=== PATIENT | female | born 1945 | race Caucasian/White ===

== ENCOUNTER 2025-06-01 16:42 | Emergency (ER) | payer MEDICARE, SELFPAY ==
--- NOTE | ~2025-06-01 | XR_ITS ---
EXAMINATION: XR hand RT min 3V DATE: 06/01/2025 17:13 INDICATION: Right hand pain at the fifth metacarpal and digit post fall TECHNIQUE: Posteroanterior, oblique and lateral views of the right hand were obtained. COMPARISON: None. FINDINGS: 1 mm displacement of a fracture at the ulnar side of the base of the fifth proximal phalanx. The frac ture plane appears to extend to the ulnar margin of the proximal articular surface, potentially intra -articular but without significant fracture gap or incongruity. No other fractures identified. Polyar ticular osteoarthritis, moderate severity at the triscaphe, first and second metacarpophalangeal, fir st metacarpophalangeal and at multiple distal interphalangeal joints with mild osteoarthritis at the wrist, midcarpal and many of the remaining carpal metacarpal, metacarpophalangeal and interphalangeal joints. Diffuse osteopenia. Subtle chondrocalcinosis in the region of the lunotriquetral ligament. S oft tissue swelling about the base of the fifth digit. IMPRESSION: 1. Minimally displaced likely intra-articular fracture at the ulnar base of the right fifth proximal phalanx. 2. 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 Reviewed, dictated and finalized at location A. IMPRESSION: 1. Minimally displaced likely intra-articular fracture at the ulnar base of the right fifth proximal phalanx. 2. Diffuse osteopenia and moderate polyarticular osteoarthritis at the right aguirre nd.
--- NOTE | ~2025-06-01 | XR_ITS ---
EXAMINATION: XR chest 2V DATE: 06/01/2025 17:48 INDICATION: Lightheadedness TECHNIQUE: PA and lateral views of the chest were obtained. COMPARISON: None FINDINGS: Mild hyperexpansion of the lungs. Moderate biapical pleural-parenchymal scarring. No other airspace o pacities, pulmonary edema, pleural effusion or pneumothorax. Mild cardiomegaly. Left pectoral implant able registered nurse cardiac telemetry. Mild thoracic kyphosis with mild to moderate spondylosis. IMPRESSION: 1. . Megaly. 2. Mild hyperexpansion lungs with moderate biapical pleural-parenchymal scarring. Reviewed, dictated and finalized at location A. IMPRESSION: 1. . Megaly. 2. Mild hyperexpansion lungs with moderate biapical pleural-parenchymal scarjosselin monreal
--- NOTE | 2025-06-01 16:53 | ED_ITS ---
HPI - Extremity Injury (Upper) General Chief Complaint: Extremity Injury, Upper Stated Complaint: R ARM INJURY Time Seen by Provider: 06/01/25 17:22 Source: patient and RN notes reviewed Mode of arrival: ambulatory Limitations: no limitations History of Present Illness HPI narrative: 80-year-old female presents with concern for right hand injury, right arm injury. She reports she has been feeling lightheaded, yesterday she fell out of a car, injuring her right arm. She also reports a small skin tear on her left arm. She has AFib and sees a sushi chef in her home state of [place]. She has a follow-up in July. She is a poor historian. MD complaint: injury to: right, arm and hand Related Data Home Medications ?Medication ?Instructions ?Recorded ?Confirmed ?Last Taken ?Type apixaban 2.5 mg tablet (Eliquis) mg 06/01/25 Unknown History metoprolol succinate 25 mg mg PO 06/01/25 Unknown History tablet,extended release 24 hr Allergies Allergy/AdvReac Type Severity Reaction Status Date / Time No Known Allergies Allergy Verified 06/01/25 17:05 Review of Systems Review of Systems: CONSTITUTIONAL: Denies malaise, chills, sweats, or fever. CARDIOVASCULAR: Denies chest pain, palpitations, or edema. RESPIRATORY: Denies cough or dyspnea. SKIN: Reports skin tear to the right arm and left elbow MUSCULOSKELETAL: Reports right hand pain NEUROLOGIC: Denies numbness, weakness All systems reviewed & are unremarkable except as noted in HPI and below PMFSH Comments At time of signature, agree with nursing past medical, surgical, social and family history. There is no relevant family history pertinent to the presenting complaint Exam Narrative: GENERAL: Nontoxic-appearing and in no acute distress. HEAD: Normocephalic, atraumatic. EYES: PERRLA NECK: Supple. CHEST: Speaks in full sentences. No respiratory distress. HEART: Regular rate and rhythm. Normal and equal peripheral pulses. EXTREMITIES: Right arm, and wrist, hand, digits have grossly normal strength and sensation, normal range of motion. Moderate hand edema beneath the 5th digit, with mild ecchymosis. Normal sensation with sensitivity to light touch and pain. Tenderness noted to the base of the 5th digit. No skin tenting, no devitalized tissue or atrophy, no trophic changes, no obvious deformity, alignment normal, nearby joints and structures intact. Distal pulses palpable and equal bilaterally, skin warm, dry, pink. Capillary refill less than 3 seconds. SKIN: Clammy. 2 cm skin tear noted to the right forearm, 0.5 cm skin tear noted to the left elbow NEURO: Alert and oriented x3. PSYCH: Normal mood and affect Course Course Emergency Course: EKG and chest x-ray done because patient was feeling lightheaded. EKG shows AFib, patient has chronic AFib. I offered patient transferred to emergency room for further evaluation of her symptoms that may have caused her fall. She declines. I urged her to go to the emergency room if her symptoms worsen. Anticipatory guidance given. Patient agrees to follow-up as directed and is aware of reasons to seek care at the emergency department. Portions of this record may have been created with voice recognition software Level of Care: Express Care Visit Vital Signs Vital signs: Vital Signs Temperature 98.4 F 06/01/25 17:01 Pulse Rate 96 06/01/25 17:01 Respiratory Rate 16 06/01/25 17:01 Blood Pressure 111/61 06/01/25 17:01 Pulse Oximetry 93 06/01/25 17:01 Temperature 98.4 F 06/01/25 17:01 Pulse Rate 96 06/01/25 17:01 Respiratory Rate 16 06/01/25 17:01 Blood Pressure 111/61 06/01/25 17:01 Pulse Oximetry 93 06/01/25 17:01 Reviewed. MDM - Extremity Injury (Upper) MDM Narrative Medical decision making narrative: Patients injury and pain is consistent with musculoskeletal etiology. No signs of neurological or vascular compromise on exam. Compartments and tissues are soft without signs of compartment syndrome. Pain is felt appropriate for further evaluation on an outpatient basis. Imaging Data My impression: Images reviewed, interpreted by radiologist, agree, see report. Radiologist's impression: EXAMINATION: XR hand RT min 3V DATE: 06/01/2025 17:13 INDICATION: Right hand pain at the fifth metacarpal and digit post fall TECHNIQUE: Posteroanterior, oblique and lateral views of the right hand were obtained. COMPARISON: None. FINDINGS: 1 mm displacement of a fracture at the ulnar side of the base of the fifth proximal phalanx. The fracture plane appears to extend to the ulnar margin of the proximal articular surface, potentially intra-articular but without significant fracture gap or incongruity. No other fractures identified. Polyarticular osteoarthritis, moderate severity at the triscaphe, first and second metacarpophalangeal, first metacarpophalangeal and at multiple distal interphalangeal joints with mild osteoarthritis at the wrist, midcarpal and many of the remaining carpal metacarpal, metacarpophalangeal and interphalangeal joints. Diffuse osteopenia. Subtle chondrocalcinosis in the region of the lunotriquetral ligament. Soft tissue swelling about the base of the fifth digit. IMPRESSION: 1. Minimally displaced likely intra-articular fracture at the ulnar base of the right fifth proximal phalanx. 2. 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 ECG Data EKG #1: ECG completion date: 06/01/25 ECG completion time: 17:41 Prior ECG tracings: not available for review Interpretation: Rate 83, left axis deviation, QRS duration 121 EKG Interpretation: atrial fibrillation and RBBB Critical Care Time Critical Care Time Critical Care Time: No Discharge Plan Discharge Clinical Impression: Fracture of proximal phalanx of digit of hand, Skin tear Patient Disposition: Home Condition: Stable Instructions: Finger Fracture (ED), Skin Tear (ED) Additional Instructions: Please rest, ice and elevate the affected extremity. Please take Tylenol, as needed, for pain. Follow up with Orthopedic Surgery in 1-2 days for further evaluation - please call for an appointment. Keep cast clean, dry and on. Keep your wound dressed with a nonstick dressing. Please go to ER immediately for increased pain, tingling/numbness, swelling, redness, and fever Patient Language: French Prescriptions: No Action metoprolol succinate 25 mg tablet extended release 24 hr PO Eliquis 2.5 mg tablet Follow-up/Referrals: Wendy,Esperanza [Other] Time of Disposition: 18:25
[2025-06-01 17:01] VITALS: BP 111/61; PULSE 96; RESP 16; TEMP 36.9; O2SAT 93
--- NOTE | 2025-06-01 17:20 | ECG_ITS ---
Test Date: 2025-06-01 17:28:47 Measurements Intervals [place] Rate: 83 P: 0 [place]: 0 QRS: -33 QRSD: 121 T: 25 QT: 398 QTc: 468 Interpretive Statements ATRIAL FIBRILLATION MARKED LEFT AXIS DEVIATION [QRS AXIS < -30] RIGHT BUNDLE BRANCH BLOCK [120+ ms QRS DURATION, UPRIGHT V1, 40+ ms S IN I/aVL/V4/V5/V6] No previous ECG available for comparison Electronically Signed On 06-02-2025 18:46:03 CDT by Dinh Ferreira M.D.
== END 2025-06-01 18:33 | disposition home or self-care (01) ==
PROVIDERS: Emergency Provider Nurse Practitioner
DX: S62.616A Displaced fracture of proximal phalanx of right little finger, initial encounter for closed fracture (principal); V48.4XXA Person boarding or alighting a car injured in noncollision transport accident, initial encounter; S51.811A Laceration without foreign body of right forearm, initial encounter; S51.011A Laceration without foreign body of right elbow, initial encounter; I48.91 Unspecified atrial fibrillation; Z79.01 Long term (current) use of anticoagulants
CPT/HCPCS: 29130; 71046; 73130; 93005; 99214; G0463